=== PATIENT | male | born 1965 | race Caucasian/White ===

== ENCOUNTER 2020-12-31 19:04 | Inpatient (IN) | payer OTHER ==
[~2020-12-31] VITALS: Ht 167.6 cm; Wt 77.1 kg
[2020-12-31] MEDS ORDERED: IV NS 0.9% 1,000 ML BAG IV ONE ×2 (19:30→21:30)
--- NOTE | 2020-12-31 19:32 | NUR ---
TEODORA FROM HOME TO ER BED 6. AAOX3. BREATHING RAPID AND DEEP. BROUGHT IN FOR "NOT FEELING WELL" TODAY. PER EMS REPORT, PT IS KNOWN DIABETIC AND BS WAS HI. UPON RECEIVING PT, ACCUCHECHK READING WAS "HI" X 2. WAS AT THE BEDSIDE FOR EVAL. ORDERS RECEIVED, NOTED AND CARRIED OUT. IV LINE EXTABLISHED ON R WRIST 18G WELL ON THE LFA 18G, BLOOD DRAWN AND SENT TO LAB. PT ON MONITOR
[2020-12-31 20:06] LABS: BASOPHILS % (AUTO) 0.3 % (0.0-2.0); HEMATOCRIT 41 % (39-51); HEMOGLOBIN 13.1 g/dL (13.5-17.5); LYMPHOCYTES # (AUTO) 1.2 /CMM (0.8-4.8); LYMPHOCYTES % (AUTO) 8.2 % (20.0-44.0); MEAN CORPUSCULAR HGB CONC 32 g/dl (31.0-36.0); MEAN CORPUSCULAR VOLUME 90 fL (80-96); MONOCYTES # (AUTO) 0.8 /CMM (0.1-1.30); MONOCYTES % (AUTO) 5.3 % (2.0-12.0); NEUTROPHILS # (AUTO) 13.1 /CMM (1.8-8.9); NEUTROPHILS % (AUTO) 86.2 % (43.0-81.0); PLATELET COUNT (AUTO) 341 /CMM (150-450); RED BLOOD CELL COUNT(AUTO) 4.57 MIL/uL (4.5-6.0); WHITE BLOOD COUNT (AUTO) 15.2 K/uL (4.3-11.0)
--- NOTE | 2020-12-31 20:12 | NUR ---
HETAL OCHOA (STEP SON) [phone]
--- NOTE | 2020-12-31 20:21 | NUR ---
ACCUCHECK STILL READ "HI". AWARE
[2020-12-31 20:26] LABS: BILIRUBIN,DIRECT 0.3 mg/dL (0.0-0.2); BILIRUBIN,TOTAL 0.5 mg/dL (0.2-1.0); CREATININE 1.3 mg/dL (0.6-1.3); POTASSIUM 5.5 mmol/L (3.5-5.1); TOTAL PROTEIN, SERUM 6.7 g/dL (6.4-8.2)
--- NOTE | 2020-12-31 20:27 | NUR ---
NIC-DAUGHTER [phone]
[2020-12-31 20:37] LABS: ABG BASE EXCESS -25.2 mmol/L; ABG OXYGEN SATURATION 49.4 % (92.0-98.5); ABG PCO2 32.8 mmHg (35.0-45.0); ABG PH 6.923 (7.350-7.450); ABG PO2 33.8 mmHg (75.0-100.0); MetHb 0.3 % (0.0-1.5); O2Hb 48.8 % (94.0-97.0); VENT MODE, BG ROOM AIR
--- NOTE | 2020-12-31 20:58 | NUR ---
ICU 252
[2020-12-31] MEDS ORDERED: INSULIN REGULAR, HUMAN 100 UNITS in IV NS 0.9% 100 ML IV PRN (21:00)
[2020-12-31] MEDS ORDERED: INSULIN REGULAR, HUMAN 100 UNIT/ML 10 ML VIAL ONE (21:01)
--- NOTE | 2020-12-31 21:01 | NUR ---
CALLED [facility], PAGED JESSE
[2020-12-31] MEDS: IV PREMIX NS +20MEQ KCL 1,000 L IV PRN ×2 (21:02→23:41)
[2020-12-31] MEDS ORDERED: VANCOMYCIN 1 GM VIAL ONE (21:23)
[2020-12-31] MEDS ORDERED: CEFTRIAXONE 1GM BAG (ER ONLY) 50 ML IV ONE ×2 (21:23→21:30)
[2020-12-31] MEDS ORDERED: VANCOMYCIN 1 GM in IV D5W 250 ML IV ONE (21:30)
[2020-12-31] MEDS ORDERED: INSULIN REGULAR, HUMAN 100 UNIT/ML 10 ML VIAL IV ONE (21:30)
--- NOTE | 2020-12-31 21:47 | NUR ---
REPORT GIVEN TO MICK MILLAN FOR AMADEO
[2020-12-31] MEDS ORDERED: HYDROCODONE/APAP 5/325MG TABLET PO PRN (22:30)
[2020-12-31] MEDS ORDERED: MAGNESIUM HYDROXIDE 30 ML UDC PO PRN (22:30)
[2020-12-31] MEDS ORDERED: ONDANSETRON HCL/PF 4 MG/2 ML VIAL IVP PRN (22:30)
[2020-12-31] MEDS ORDERED: ACETAMINOPHEN 325 MG TABLET PO PRN (22:30)
[2020-12-31] MEDS ORDERED: Z GUARD REMEDY 2 OZ OINT TP PRN (22:30)
[2020-12-31] MEDS ORDERED: IV NS 0.9% 1,000 ML IV PRN (22:30)
[2020-12-31] MEDS ORDERED: MAG HYDROX/AL HYDROX/SIMETH 30 ML UDC PO PRN (22:30)
[2020-12-31] MEDS ORDERED: ZOLPIDEM TARTRATE 5 MG TABLET PO PRN (22:30)
--- NOTE | 2020-12-31 22:38 | NUR ---
accucheck done with reading of "HI"
--- NOTE | 2020-12-31 22:55 | NUR ---
pt trasnported to [facility] with emt and rn at bedside w/ acls protocol. nad noted during transfer.
[2020-12-31 23:00] VITALS: BP 118/65
[2020-12-31] MEDS ORDERED: INSULIN REGULAR, HUMAN 100 UNIT in IV NS 0.9% 99 ML IV PRN (23:00)
--- NOTE | 2020-12-31 23:00 | NUR ---
PROGRAM DIRECTOR GROUP WORK RCD PT FROM ER W/DX DKA W/ORDERS FOR HOURLY ACCU CHECK. PT A/O x4 SLURRED SPEECH PERIORBITAL SWELLING WITH EYES NOTED RED. PT SMELLS OF ALCOHOL. PT ADMITS TO DRINKING 18 BEERS PRIOR TO COMING TO HOSPITAL. NSR ON MONITOR. ON O2 4L NC. PT NPO STATUS. Addendum: 01/01/21 at 0352 by KRISTINE HARO RN PT COLD TO TOUCH WITH TEMP 96
--- NOTE | 2020-12-31 23:25 | NUR ---
CHUMMER PT INCONTINENT OF URINE WITH MOMENTS OF FALLING ASLEEP. OBTAINED ORDER FOR PIZANO CATHETER. PT TOLERATED INSERTION WELL WITH 400 ML YELLOW URINE OUTPUT.
[2020-12-31] MEDS: INSULIN REGULAR, HUMAN 100 UNIT in IV NS 0.9% 99 ML IV PRN (23:42)
[2020-12-31] MEDS: BLOOD SUGAR DIAGNOSTIC 1 EACH STRIP IN SCH (23:43)
[2021-01-01] VITALS (87 sets, daily range): BP systolic 56–136; BP diastolic 21–77
--- NOTE | 2021-01-01 01:11 | NUR ---
TURNER MACHINE OPERATOR BLOOD GLUCOSE HI PER ACCU CHECK PENDING LAB DRAW RESULTS TO TITRATE DRIP.
[2021-01-01] MEDS: BLOOD SUGAR DIAGNOSTIC 1 EACH STRIP IN SCH ×19 (01:12→23:04)
[2021-01-01] MEDS: IV PREMIX NS +20MEQ KCL 1,000 L IV PRN (01:13)
[2021-01-01 01:17] LABS: BILIRUBIN,URINE NEGATIVE (NEGATIVE); COLOR,URINE YELLOW (YELLOW); LEUKOCYTE ESTERASE ,URINE NEGATIVE (NEGATIVE); NITRITE, URINE NEGATIVE (NEGATIVE); PROTEIN,URINE 30 mg/dl (NEGATIVE); UGLUCOSE >=1000 mg/dL (NEGATIVE); UROBILINOGEN,URINE 0.2 EU/dL (0.2)
[2021-01-01 01:25] LABS: CALCIUM, SERUM 7.8 mg/dL (8.5-10.1); CREATININE 1.2 mg/dL (0.6-1.3); POTASSIUM 4.5 mmol/L (3.5-5.1)
[2021-01-01 01:29] LABS: BACTERIA,URINE 3+ /HPF (None Seen); MUCUS,URINE Few /LPF (None Seen); RBC,URINE 0-2 /HPF (0-2); SQUAMOUS EPITHELIAL CELL,UR Few /HPF (None Seen); URINE AMORPHOUS URATE Many /HPF (None Seen)
[2021-01-01] MEDS ORDERED: KCL IV ONE (02:05)
[2021-01-01] MEDS ORDERED: NS IV ONE (02:05)
[2021-01-01] MEDS: LORAZEPAM INJ 2 MG/ML VIAL IV PRN ×3 (02:14→21:34)
--- NOTE | 2021-01-01 02:15 | NUR ---
BIOANALYST PT NOTED TO BE RESTLESS PULLED ATIVAN TO ADMINISTER TO PT. APPLICATION SECURITY CONSULTANT AT BEDSIDE AND NOTED PT BECOME UNRESPOSIVE W/AGONAL BREATHS. DESATURATING ON MONITOR. CODE BLUE INITIATED PER PROTOCOL.
[2021-01-01] MEDS: IV PREMIX NS +20MEQ KCL 1 L IV PRN ×3 (02:33→11:39)
--- NOTE | 2021-01-01 02:35 | NUR ---
RT NOTE PT ORALLY INTUBATED BY VIA ETT 7.5CM SECURED @ 23CM AT THE LIP LINE. EQUAL CHEST RISE AND BILATERAL BREATH SOUNDS NOTED. COLOR CHANGED NOTED FROM CO2 DETECTOR. PT PLACED ON MECHANICAL VENT SETTINGS OF AC16 VT500 FIO2 100% PEEP +5. ALARMS ARE SET AND AUDIBLE. MECHANICAL VENT IS PLUGGED INTO RED OUTLET. PATIENT SUCTIONED FOR THICK, BROWN SECRETIONS. EMERGENCY EQUIPMENT AT PATIENT BEDSIDE. WAITING FOR FURTHER ORDERS. WILL CONTINUE TO MONITOR PATIENT. Addendum: 01/01/21 at 0302 by GEOVANNA LOREDO RT Amended: Links added.
[2021-01-01 02:52] LABS: BASOPHILS % (AUTO) 0.5 % (0.0-2.0); EOSINOPHILS % (AUTO) 0.1 % (0.0-6.0); HEMATOCRIT 36 % (39-51); LYMPHOCYTES % (AUTO) 33.9 % (20.0-44.0); MEAN CORPUSCULAR HGB CONC 33 g/dl (31.0-36.0); MEAN CORPUSCULAR VOLUME 88 fL (80-96); MONOCYTES # (AUTO) 0.3 /CMM (0.1-1.30); NEUTROPHILS # (AUTO) 5.6 /CMM (1.8-8.9); NEUTROPHILS % (AUTO) 62.5 % (43.0-81.0); PLATELET COUNT (AUTO) 263 /CMM (150-450); RED BLOOD CELL COUNT(AUTO) 4.07 MIL/uL (4.5-6.0); WHITE BLOOD COUNT (AUTO) 8.9 K/uL (4.3-11.0)
[2021-01-01 03:02] LABS: ALBUMIN 2.5 g/dL (3.4-5.0); BILIRUBIN,DIRECT 0.2 mg/dL (0.0-0.2); BILIRUBIN,TOTAL 0.5 mg/dL (0.2-1.0); CALCIUM, SERUM 7.8 mg/dL (8.5-10.1); CREATININE 1.6 mg/dL (0.6-1.3); MAGNESIUM 2.6 mg/dL (1.8-2.4); PHOSPHORUS 3.3 mg/dL (2.5-4.9); POTASSIUM 4.3 mmol/L (3.5-5.1); TOTAL PROTEIN, SERUM 5.6 g/dL (6.4-8.2)
[2021-01-01 03:13] LABS: THYROID STIMULATING HORMONE 1.001 uIU/mL (0.358-3.74)
[2021-01-01 04:00] LABS: ABG BASE EXCESS -20.4 mmol/L; ABG OXYGEN SATURATION 89.8 % (92.0-98.5); ABG PCO2 39.3 mmHg (35.0-45.0); ABG PH 7.015 (7.350-7.450); ABG PO2 71.3 mmHg (75.0-100.0); AaDO2 602.4 mmHg; COHb 0.2 % (0.5-1.5); MetHb 0.3 % (0.0-1.5); O2Hb 89.4 % (94.0-97.0); PEEP,BG 5 cm H2O; SITE, ABG Left Brachial; VENT MODE, BG AC16 VT500 100% PEEP+5; VT, ABG 500 mL
[2021-01-01] MEDS ORDERED: NOREPINEPHRINE 8MG/250ML RTU 250 ML IV ONE (04:10)
[2021-01-01] MEDS: NOREPINEPHRINE 8 MG in IV NS 0.9% 242 ML IV PRN ×3 (04:16→15:27)
[2021-01-01] MEDS: PROPOFOL 100 ML IV PRN ×7 (04:30→21:30)
[2021-01-01] MEDS: INSULIN REGULAR, HUMAN 100 UNIT in IV NS 0.9% 99 ML IV PRN (04:51)
[2021-01-01] MEDS ORDERED: INSULIN REGULAR, HUMAN 100 UNIT/ML 3 ML VIAL ONE ×2 (05:19→22:51)
[2021-01-01] MEDS: ACETAMINOPHEN 650 MG/SUPP.RECT RC PRN ×3 (05:30→20:02)
--- NOTE | 2021-01-01 05:30 | NUR ---
PRINTING EQUIPMENT MECHANIC APPRENTICE DESPITE INCREASE IN PROPOFOL TITRATION PT REMAINS AGITATED ATIVAN 1 MG IV GIVEN.
[2021-01-01 06:18] LABS: ABG BASE EXCESS -10.9 mmol/L; ABG PCO2 30.9 mmHg (35.0-45.0); ABG PO2 220.1 mmHg (75.0-100.0); COHb 0.3 % (0.5-1.5); MetHb 0.3 % (0.0-1.5); O2Hb 98.4 % (94.0-97.0); PEEP,BG 5 cm H2O; SITE, ABG Left Brachial; VENT MODE, BG AC24 VT500 100% PEEP+5; VT, ABG 500 mL
--- NOTE | 2021-01-01 07:00 | NUR ---
RN NOTES RECEIVED PT ON BED, INTUBATED, SEDATED ON DIPRIVAN AT 35MCG/KG/MIN, LEVO AT .3 MCG/KG/MIN , INSULIN DRIP AT 6.84 U/HR , IVF AT 250CC/HR RUNNING , ON ST HR IN 100'S, PIZANO DRINING TO GRAVITY, PT IS NPO, R WRIST AND LEFT FA IV SITES CLEAN,DRY AND INTACT, SR UPx3, CALL LIGHT WITHIN EASY REACH BED LOCKED AND IN LOWEST POSITION, CONTINUE TO MONITOR .
[2021-01-01] MEDS ORDERED: ATEN25TA PO (08:04)
[2021-01-01] MEDS ORDERED: GLIP10TA11 PO (08:04)
[2021-01-01] MEDS ORDERED: METF-442 PO (08:04)
[2021-01-01] MEDS ORDERED: LISI40TA13 PO (08:04)
[2021-01-01] MEDS ORDERED: ALOG25TA2 PO (08:04)
[2021-01-01] MEDS ORDERED: TAMS-12 PO (08:04)
[2021-01-01] MEDS: PANTOPRAZOLE 40 MG VIAL IV SCH (08:18)
[2021-01-01 08:19] LABS: CALCIUM, SERUM 7.5 mg/dL (8.5-10.1); CREATININE 1.4 mg/dL (0.6-1.3); POTASSIUM 4.4 mmol/L (3.5-5.1)
[2021-01-01] MEDS ORDERED: IV PREMIX NS +20MEQ KCL 20 MEQ/L BAG IV ONE (08:26)
[2021-01-01] MEDS: VANCOMYCIN 0.75 GM in IV D5W 250 ML IV SCH ×2 (09:17→21:30)
[2021-01-01] MEDS ORDERED: ETOMIDATE 2 MG/ML VIAL IV ONE (10:43)
[2021-01-01] MEDS ORDERED: ROCURONIUM BROMIDE 50 MG/5 ML IV ONE ×2 (10:43→10:44)
--- NOTE | 2021-01-01 11:50 | NUR ---
Advertising Account Manager: supervisor customer services consult requested for ETOH use. Patient was brought to the hospital on 12/31/20 for DKA. Patient is a 55-year-old, male. SW attempted to meet with the patient at his hospital bed on the med-surg unit, however patient is intubated. Per patients MICK De Dios, patient is also sedated and therefore SW is not able to interview the patient at this time. Per patients chart, patient had drank 18 beers prior to coming to the hospital. PLAN: SW will contact patients family to identify a point of contact and confirm the patients current living situation. supervisor customer services will follow up with the patient at a later time.
--- NOTE | 2021-01-01 11:58 | NUR ---
Package Lift Operator note: YUKO spoke to the patients Kirk faustin [phone] to locate a point of contact and confirm the patients current living situation. Kirk confirmed that the patient is currently living with his at [address], [place] [address]; [phone]. YUKO asked Kirk if someone would be able to brain picker the patient from the hospital upon discharge and Kirk stated that he will be able to. Kirk stated he is a main point of contact for the patient. No further SS interventions needed, however SW will remain available to the patient and nursing staff as needed. Addendum: 01/01/21 at 1445 by JORJE HUNTLEY Per patient's ramin, patient's spouse-Shruti Ellington' contact information is [phone].
[2021-01-01 12:01] LABS: CALCIUM, SERUM 7.3 mg/dL (8.5-10.1); CREATININE 1.4 mg/dL (0.6-1.3); POTASSIUM 4.8 mmol/L (3.5-5.1)
--- NOTE | 2021-01-01 12:31 | NUR ---
RN NOTES DR PETERS NOTIFIED REGARDING ANION GAP =14.
--- NOTE | 2021-01-01 14:00 | NUR ---
RN NOTES BG =184, DR PETERS NOTIFED, NEW ORDER RECEIVED . CONTINUE TO MONITOR .
[2021-01-01] MEDS ORDERED: Potassium Chloride 20 MEQ in IV D5/0.45 NACL 1,000 ML IV PRN (14:30)
[2021-01-01 16:25] LABS: CREATININE 1.3 mg/dL (0.6-1.3); POTASSIUM 5.3 mmol/L (3.5-5.1)
--- NOTE | 2021-01-01 17:00 | NUR ---
RN NOTES DR PETERS NOTIFED REGARDING K=5.3, NEW IVF ORDER RECEIVED.
[2021-01-01] MEDS: IV D5/ 0.9% NACL 1,000 ML IV PRN (17:07)
[2021-01-01] MEDS ORDERED: BLOOD SUGAR DIAGNOSTIC 1 EACH STRIP IN SCH ×2 (18:00)
--- NOTE | 2021-01-01 18:33 | NUR ---
RN NOTES PT REMAINS INTUBATED AND SEDATED, TOLERAING VENT SETTING WELL, ON SOB NOTED, ON TELS SR HR IN 90'S, PIZANO DRAINING TO GRAVITY, NPO, LEFT UPPER ARM PICC LINE SITE CLEAN ,DRY AND INTACT, INSULIN GTT RUNNING AT 4.58 U/HR , DIPRIVAN AT 70 MCG/KG/MIN , D5 NS AT 100CC/HR , LEVO AT .1 MCG/KG/MIN RUNNING , SR UP x3, CALL LIGHT WITHIN EASY REACH, BED LOCKED AND IN LOWEST POSITION, WILL ENDORSE TO FIRE AND EXPLOSION INVESTIGATOR NURSE FOR CONTINUITY OF CARE .
--- NOTE | 2021-01-01 19:10 | NUR ---
APPAREL CUTTER RCD PT W/DX DKA PT IS SEDATED ON PROPOFOL 70 MCG/KG/MIN. INTUBTAED 7.5 @ 23 W/VENT SETTINGS AC 24 550 50% +5. NSR ON MONITOR W/BP 88/56 ON LEVOPHED 0.1 MCG/KG/MIN. INSULIN DRIP AY 4.66 UNITS/HR. TEMP 101.1 WILL ADMINISTER TYLENOL WHEN IT IS DUE AND PLACE ON COOLING MEASURES. PIZANO CATH DRAINING YELLOW URINE. SKIN INTACT. PT NPO AT THIS TIME. PHILLIP PICC LINE PATENT AND WITH GOOD BLOOD RETURN.
--- NOTE | 2021-01-01 20:00 | NUR ---
LOGISTICS SERVICE REPRESENTATIVE TEMP 101.1 ADMINISTERED TYLENOL DC AND RENDERED COOLING MEASURES.
[2021-01-01] MEDS: CEFTRIAXONE 1 G in IV D5W 50 ML IV SCH (20:30)
[2021-01-01 21:20] LABS: CREATININE 1.3 mg/dL (0.6-1.3); POTASSIUM 4.2 mmol/L (3.5-5.1)
--- NOTE | 2021-01-01 21:35 | NUR ---
WET ROOM WORKER DESPITE BEING ON DIPRIVAN AT 70 MCG/KG/MIN PT NOTED TO BE RESTLESS AND ATTEMPTING TO REACH FOR ET TUBE ATIVAN 1 MG IVP ADMINISTERED AT THIS TIME. BSWR REMAIN IN PLACE TO PREVENT SELF EXTUBATION.
[2021-01-01] MEDS ORDERED: INSULIN GLARGINE, 100 UNIT/ML CARTRIDGE SQ ONE ×2 (22:00→22:51)
[2021-01-01] MEDS ORDERED: DEXTROSE 50%-WATER 50 ML DISP.SYRIN IV PRN (22:00)
[2021-01-01] MEDS: INSULIN REGULAR, HUMAN 100 UNIT/ML 3 ML VIAL SQ PRN (23:02)
[2021-01-02] VITALS (82 sets, daily range): BP systolic 80–159; BP diastolic 51–93
[2021-01-02] MEDS: PROPOFOL 100 ML IV PRN ×3 (00:30→09:16)
[2021-01-02] MEDS: LORAZEPAM INJ 2 MG/ML VIAL IV PRN ×3 (03:17→14:15)
[2021-01-02 04:45] LABS: CALCIUM, SERUM 7.1 mg/dL (8.5-10.1); CREATININE 1.3 mg/dL (0.6-1.3)
[2021-01-02] MEDS: IV D5/ 0.9% NACL 1,000 ML IV PRN ×2 (04:45→15:13)
[2021-01-02] MEDS: BLOOD SUGAR DIAGNOSTIC 1 EACH STRIP IN SCH ×4 (05:29→21:01)
[2021-01-02] MEDS: INSULIN REGULAR, HUMAN 100 UNIT/ML 3 ML VIAL SQ PRN ×4 (05:31→21:02)
--- NOTE | 2021-01-02 07:10 | NUR ---
RN NOTES RECEIVED PT ON BED, INTUBATED, SEDATED ON DIPRIVAN , LEVO RESTARTED, SBP IN LOW 80'S , ON TELE SR-ST HR IN 100'S, IVF AT 100CC/HR RUNNING , HARINDER DRINING TO GRAVITY, PT IS NPO, R WRIST, LEFT FA AND LEFT UPPER ARM PICC LINE SITES CLEAN, DRY AND INTACT, SR UPx3, CALL LIGHT WITHIN EASY REACH BED LOCKED AND IN LOWEST POSITION, CONTINUE TO MONITOR .
[2021-01-02] MEDS: NOREPINEPHRINE 8 MG in IV NS 0.9% 242 ML IV PRN (07:11)
[2021-01-02] MEDS: PANTOPRAZOLE 40 MG VIAL IV SCH (08:30)
[2021-01-02 08:57] LABS: ABG BASE EXCESS -6.2 mmol/L; ABG OXYGEN SATURATION 98.5 % (92.0-98.5); ABG PH 7.383 (7.350-7.450); ABG PO2 158.4 mmHg (75.0-100.0); AaDO2 163.2 mmHg; COHb 0.3 % (0.5-1.5); MetHb 0.3 % (0.0-1.5); O2Hb 97.9 % (94.0-97.0); PEEP,BG 5 cm H2O; SITE, ABG Right Brachial; VT, ABG 550 mL
[2021-01-02] MEDS: VANCOMYCIN 0.75 GM in IV D5W 250 ML IV SCH ×2 (09:32→21:12)
[2021-01-02 09:39] LABS: BASOPHILS % (AUTO) 0.2 % (0.0-2.0); EOSINOPHILS % (AUTO) 0.3 % (0.0-6.0); HEMATOCRIT 24 % (39-51); HEMOGLOBIN 8.5 g/dL (13.5-17.5); LYMPHOCYTES # (AUTO) 1.7 /CMM (0.8-4.8); LYMPHOCYTES % (AUTO) 10.9 % (20.0-44.0); MEAN CORPUSCULAR HGB CONC 36 g/dl (31.0-36.0); MEAN CORPUSCULAR VOLUME 83 fL (80-96); MONOCYTES # (AUTO) 0.9 /CMM (0.1-1.30); MONOCYTES % (AUTO) 5.8 % (2.0-12.0); NEUTROPHILS # (AUTO) 12.7 /CMM (1.8-8.9); NEUTROPHILS % (AUTO) 82.8 % (43.0-81.0); PLATELET COUNT (AUTO) 130 /CMM (150-450); RED BLOOD CELL COUNT(AUTO) 2.88 MIL/uL (4.5-6.0); WHITE BLOOD COUNT (AUTO) 15.3 K/uL (4.3-11.0)
[2021-01-02 09:41] LABS: ALBUMIN 1.9 g/dL (3.4-5.0); BILIRUBIN,DIRECT 0.2 mg/dL (0.0-0.2); BILIRUBIN,TOTAL 0.4 mg/dL (0.2-1.0); TOTAL PROTEIN, SERUM 4.6 g/dL (6.4-8.2)
[2021-01-02] MEDS ORDERED: DEXTROSE 50%-WATER 50 ML DISP.SYRIN IV PRN (11:30)
[2021-01-02 11:44] LABS: THYROID STIMULATING HORMONE 1.517 uIU/mL (0.358-3.74)
--- NOTE | 2021-01-02 12:00 | NUR ---
RN NOTES DR PETERS NOTIFIED REGARDING HIGH TRIGLYCERIDE, NEW ORDER RECEIVED .
[2021-01-02] MEDS: PRECEDEX 400 MCG/100 ML BOTTLE 100 ML IV SCH ×4 (12:41→23:44)
[2021-01-02] MEDS ORDERED: FENTANYL CITRAT IV 2,500 MCG in IV NS 0.9% 200 ML IV PRN (13:30)
[2021-01-02] MEDS ORDERED: FENTANYL CITRATE IV 1,250 MCG in IV NS 0.9% 225 ML IV PRN (13:30)
--- NOTE | 2021-01-02 18:10 | NUR ---
RN NOTES PT REMANINS INTUBATED AND SEDATED, ON PRECEDEX AT 1.5MCG/KG/MIN, NO DISTRESS NOTED AT THIS TIME, LEVO DRIP AT 0.06 MCG/KG/MIN AND IVF AT 100C/HR RUNNING . LEFT UPPER ARM PICC LINE SITE CLEAN, DRY AND INTACT, SR UP x3, CALL LIGHT WITHIN EASY REACH, PT'S AT THE BEDSIDE VISITING PT, WILL ENDORSE TO HOGSHEAD PRESS OPERATOR NURSE FOR CONTINUITY OF CARE .
--- NOTE | 2021-01-02 19:05 | NUR ---
RECEIVED PT ON BED SEDATED ON ETT/VENT SETTING PER MD FIO2 50% SPO2 100% SEDATED ON PRECEDEX @ 1.5 MCG/KG/HR AND ON LEVOPHED 0.04 MCG/KG/MIN , AND D4 1/2 NS @ 100ML/HR VIA PHILLIP PICC LINE INFUSING WELL HAVE BILATERAL WRIST RESTRAINS A PRECAUTION FOR ACCIDENTAL SELF EXTUBATION, CIRCULATION WILL CHECKED REGULARLY PT HAVE PIZANO CATHETER WITH YELLOW URINE DRAINING VIA GRAVITY, BED ON LOWEST POSITION AND LOCKED SIDE RAILS UP X3 WILL CONT TO MONITOR
[2021-01-02] MEDS: CEFTRIAXONE 1 G in IV D5W 50 ML IV SCH (20:21)
[2021-01-02] MEDS: INSULIN GLARGINE, 100 UNIT/ML CARTRIDGE SQ SCH (21:03)
[2021-01-03] VITALS (41 sets, daily range): BP systolic 84–154; BP diastolic 52–93
[2021-01-03] MEDS: BLOOD SUGAR DIAGNOSTIC 1 EACH STRIP IN SCH ×6 (01:06→21:20)
[2021-01-03] MEDS: INSULIN REGULAR, HUMAN 100 UNIT/ML 3 ML VIAL SQ PRN ×5 (01:10→21:25)
--- NOTE | 2021-01-03 02:40 | NUR ---
PT WAS SELF EXTUBATED . PLACED ON NON REBREATHER 15L. STAT ABG DONE. RESULT GIVEN TO CHARGE NURSE ED. TITRATED 02 TO 10L SIMPLE MASK. PT IS PARTIALLY SEDATED. HELP DESK ADMINISTRATOR ED AND RN NIRANJAN PRESENT IN THE ROOM. SPO2 100%, HR 70. RR 15. WILL CONTINUE TO MONITOR PT T/O SHIFT.
--- NOTE | 2021-01-03 02:40 | NUR ---
I HEARD VENT IS ALARMING I GO TO PT ROOM AND SAW PT KEEP ON MOVING HIS HEAD AND UPON INSPECTION AND ASSESSING PT I SAW THAT HE ACCIDENTALLY SELF EXTUBATED, I IMMEDIATELY DO AMBUBAG THE OTHE PT AND CALL FOR AN ASSISTANCE, CHARGE NURSE AND RT COME TO HELP WE PUT HIM ON 15 NRM WITH SPO2 100% TURN OFF THE PRECEDEX SEDATION AND DO IMMEDIATE ABG WILL CONT TO MONITOR THE PT
[2021-01-03 02:54] LABS: ABG BASE EXCESS -3.6 mmol/L; ABG OXYGEN SATURATION 99.2 % (92.0-98.5); ABG PCO2 30.1 mmHg (35.0-45.0); ABG PH 7.439 (7.350-7.450); ABG PO2 533.9 mmHg (75.0-100.0); COHb 0.5 % (0.5-1.5); MetHb 0.3 % (0.0-1.5); O2Hb 98.4 % (94.0-97.0); SITE, ABG Right Radial; VENT MODE, BG 15 LNRB
[2021-01-03] MEDS: IV D5/ 0.9% NACL 1,000 ML IV PRN ×2 (03:02→13:52)
--- NOTE | 2021-01-03 03:06 | NUR ---
ABG RESULTS RELAYED TO DR. MOLINA WITH NO NEW ORDER, PT IS AWAKE BREATHING EVEN AND UNLABORED, ON O2 10L VIA SIMPLE MASK NOW WILL CONT TO MONITOR THE PT Addendum: 01/03/21 at 0309 by NIRANJAN BERKOWITZ RN CURRENT SPO2 IS 99%
--- NOTE | 2021-01-03 04:04 | NUR ---
PT IS SLEEPING EASY TO WAKE UP BUT STILL CONFUSED NO SIGN OF RESPIRATORY DISTRESS BREATHING EVEN AND UNLABORED STILL ON O2 10L VIA SIMPLE MASK SPO2 100% WILL CONT TO MONITOR
[2021-01-03 05:18] LABS: BASOPHILS % (AUTO) 0.1 % (0.0-2.0); EOSINOPHILS % (AUTO) 0.7 % (0.0-6.0); HEMATOCRIT 23 % (39-51); HEMOGLOBIN 8.1 g/dL (13.5-17.5); LYMPHOCYTES # (AUTO) 1.3 /CMM (0.8-4.8); LYMPHOCYTES % (AUTO) 9.7 % (20.0-44.0); MEAN CORPUSCULAR HGB CONC 36 g/dl (31.0-36.0); MEAN CORPUSCULAR VOLUME 83 fL (80-96); MONOCYTES # (AUTO) 0.6 /CMM (0.1-1.30); MONOCYTES % (AUTO) 4.8 % (2.0-12.0); NEUTROPHILS # (AUTO) 11.1 /CMM (1.8-8.9); NEUTROPHILS % (AUTO) 84.7 % (43.0-81.0); PLATELET COUNT (AUTO) 128 /CMM (150-450); RED BLOOD CELL COUNT(AUTO) 2.73 MIL/uL (4.5-6.0); WHITE BLOOD COUNT (AUTO) 13.1 K/uL (4.3-11.0)
[2021-01-03 05:34] LABS: ALBUMIN 1.9 g/dL (3.4-5.0); BILIRUBIN,TOTAL 0.5 mg/dL (0.2-1.0); CALCIUM, SERUM 7.2 mg/dL (8.5-10.1); CREATININE 0.9 mg/dL (0.6-1.3); MAGNESIUM 1.9 mg/dL (1.8-2.4); PHOSPHORUS 1.5 mg/dL (2.5-4.9); POTASSIUM 2.9 mmol/L (3.5-5.1); TOTAL PROTEIN, SERUM 4.8 g/dL (6.4-8.2)
--- NOTE | 2021-01-03 06:08 | NUR ---
PT ON BED AWAKE COMPLAINING OF THROAT PAIN, NO SIGN AND SYMPTOMS OF RESPIRATORY DISTRESS BREATHING EVEN AND UNLABORED, STILL ON O2 VIA SIMPLE MASK 10L SPO2 97-100% NON PRODUCTIVE COUGH NOTED WILL CONT TO MONITOR
--- NOTE | 2021-01-03 07:10 | NUR ---
PLANT TECHNICIAN NOTES RECEIVED PT ON BED AWAKE STILL CONFUSED A/O X1 ON O2 VIA SIMPLE MASK 10L SPO2 98% BREATHING EVEN AND UNLABORED, TELE MONITOR READS SINUS TACHY 100'S, NOTED WITH PICC LINE ON PHILLIP WITH D5NS RUNNING @ 100ML/HR, NOTED WITH BILATERAL SOFT WRIST RESTRAINT, CIRCULATION CHECKED AND REASSESSED Q15 MIN. SAFETY MEASURES IN PLACE, BED ON LOWEST POSITION AND LOCKED SIDE RAILS UP X 2 CALL LIGHT WITHIN REACH WILL CONTINUE TO MONITOR.
--- NOTE | 2021-01-03 07:22 | NUR ---
PT ON BED AWAKE STILL CONFUSED A/O X1 ON O2 VIA SIMPLE MASK 10L SPO2 98% BREATHING EVEN AND UNLABORED TELE MONITOR READS SINUS TACHY 100'S BED ON LOWEST POSITION AND LOCKED SIDE RAILS UP X 2 CALL LIGHT WITHIN REACH WILL ENDORSED TO AM SHIFT NURSE
[2021-01-03] MEDS: POTASSIUM CL. PREMIX PERIPHER. 50 ML IV SCH ×4 (07:46→11:07)
--- NOTE | 2021-01-03 08:01 | NUR ---
RT SPOKE WITH PATIENT IN [place]. HE IS AWAKE, ALERT, RESPONDING APPROPRIATELY TO ALL QUESTIONS. NO SOB REPORTED. PLACED ON 2L N/C. RN NOTIFIED.
--- NOTE | 2021-01-03 08:30 | NUR ---
WALLPAPERER HELPER NOTES PATIENT PULLED OUT HIS IV ACCESS ON RIGHT WRIST AND PICC LINE, APPLIED PRESSURE DRESSING, MD AWARE. WILL CONTINUE TO MONITOR.
[2021-01-03] MEDS: PANTOPRAZOLE 40 MG VIAL IV SCH (08:34)
[2021-01-03] MEDS: POTASSIUM CHLORIDE 20 MEQ TAB.PRT.SR PO SCH ×3 (08:59→11:09)
[2021-01-03] MEDS: NEUTRA PHOS 1 POWD.PACKET PO SCH ×2 (08:59→16:46)
[2021-01-03] MEDS: VANCOMYCIN 0.75 GM in IV D5W 250 ML IV SCH ×2 (09:02→21:15)
--- NOTE | 2021-01-03 10:00 | NUR ---
LENS COATING TECHNICIAN NOTES FAMILY VISITS THE PATIENT, UPDATES GIVEN, WILL CONTINUE TO MONITOR.
[2021-01-03] MEDS ORDERED: ZIPRASIDONE MESYLATE 20 MG/VIAL VIAL IM ONE (11:00)
[2021-01-03] MEDS: LORAZEPAM INJ 2 MG/ML VIAL IV PRN (17:09)
--- NOTE | 2021-01-03 18:30 | NUR ---
DOZER OPERATOR NOTES PATIENT IN BED, A/O X3 WITH PERIODS OF CONFUSION, AT BEDSIDE, PATIENT WILL GO TO ROOM 308 AT 20:00, WAITING FOR SITTER, IV ACCESS ON LEFT WRIST WITH D5NS RUNNING @ 100ML/HR, INTACT AND PATENT. PIZANO CATHETER INTACT AND PATENT WITH CLEAR YELLOW URINE OUTPUT, SAFETY MEASURES IN PLACE, BED IN LOWEST LOCKED POSITION WITH SIDERAILS UP X2, CALL LIGHT WITHIN REACH, WILL ENDORSE TO POST ACUTE CARE NURSE NURSE FOR AMADEO.
--- NOTE | 2021-01-03 19:25 | NUR ---
RADIO TIME BUYER REPORT GIVEN AND PT TRANSFERRED TO 308-.
--- NOTE | 2021-01-03 19:30 | NUR ---
pack out operator opening notes Received Pt from ICU nurse MICK Sapp. PT arrived at the unit with a gurney and ACLS protocol. Pt is alert and orientedX1-2 with episode of confusion. Respiration is normal in 2 L NC. No SOB. No S/S of distress noted. Tele monitor showed SR hr at 97. VS is stable. Afebrile. IV site at L wrist#18 is clean, intact and infusing well D5NS@ 100 ml/hr. Bilateral soft wrist restraints are intact, skin is warm to touch and circulation is check Q 2 hr. Teran cath is intact and draining yellow urine. Safety precautions is maintained. Bed at low position, brakes locked, side rails upX2, hob elevated and call light is within reach. Will continue to monitor. Addendum: 01/04/21 at 0437 by ZOILA CABRERA RN Sitter also at the bedside.
[2021-01-03] MEDS: CEFTRIAXONE 1 G in IV D5W 50 ML IV SCH (20:20)
[2021-01-03] MEDS: INSULIN GLARGINE, 100 UNIT/ML CARTRIDGE SQ SCH (21:23)
[2021-01-04] VITALS: BP 143/83
[2021-01-04] MEDS: BLOOD SUGAR DIAGNOSTIC 1 EACH STRIP IN SCH ×6 (00:24→21:21)
[2021-01-04] MEDS: INSULIN REGULAR, HUMAN 100 UNIT/ML 3 ML VIAL SQ PRN ×4 (00:25→21:26)
[2021-01-04] MEDS: IV D5/ 0.9% NACL 1,000 ML IV PRN (00:27)
[2021-01-04 04:00] VITALS: BP 142/73
[2021-01-04 06:11] LABS: BASOPHILS % (AUTO) 0.2 % (0.0-2.0); EOSINOPHILS % (AUTO) 0.8 % (0.0-6.0); HEMATOCRIT 24 % (39-51); HEMOGLOBIN 8.6 g/dL (13.5-17.5); LYMPHOCYTES # (AUTO) 1.5 /CMM (0.8-4.8); LYMPHOCYTES % (AUTO) 14.6 % (20.0-44.0); MEAN CORPUSCULAR HGB CONC 36 g/dl (31.0-36.0); MEAN CORPUSCULAR VOLUME 83 fL (80-96); MONOCYTES # (AUTO) 1.2 /CMM (0.1-1.30); MONOCYTES % (AUTO) 12.2 % (2.0-12.0); NEUTROPHILS # (AUTO) 7.4 /CMM (1.8-8.9); NEUTROPHILS % (AUTO) 72.2 % (43.0-81.0); PLATELET COUNT (AUTO) 161 /CMM (150-450); RED BLOOD CELL COUNT(AUTO) 2.87 MIL/uL (4.5-6.0); WHITE BLOOD COUNT (AUTO) 10.2 K/uL (4.3-11.0)
--- NOTE | 2021-01-04 06:50 | NUR ---
fire protection fabricator closing notes Pt is resting in bed comfortably. Pt is alert and orientedX1-2 with episode of confusion. Respiration is normal in 2 L NC. No SOB. No S/S of distress noted. VS is stable. Afebrile. Tele monitor showed SR hr at 80. VS is stable. Afebrile. IV site at L wrist#18 is clean, intact and infusing well D5NS@ 100 ml/hr. Bilateral soft wrist restraints are intact, skin is warm to touch and circulation is check Q 2 hr. Sitter at the bedside. Teran cath is intact and draining yellow urine 1450ml. Kept Pt clean, dry and comfortable. Safety precautions is maintained. Bed at low position, brakes locked, side rails upX2, hob elevated and call light is within reach. Will endorse to morning nurse for AMADEO.
--- NOTE | 2021-01-04 07:39 | NUR ---
GAUGE MAKER APPRENTICE CLOSING NOTE PATIENT A/O X1; WITH EPISODES OF CONFUSION. ON O2 2LPM VIA N/C; TOLERATING WELL WITH NO SOB. TELE MONITOR READS SR AND HR AT 90'S. IV TO L WRIST 18G; D5NS @ 100ML/HR. BILATERAL WRIST SOFT RESTRAINTS ON; GOOD BLOOD CIRCULATION NOTED. PIZANO CATH DRAINING CLEAR YELLOW URINE; PATENT AND INTACT. SAFETY MEASURES IN PLACE: BED IN LOWEST LOCKED POSITION, SIDE RAILS UPX2, CALL LIGHT WITHIN REACH, BED ALARMS ON, HOB ELEVATED. ENDORSE AMADEO TO ONCOMING MORNING RN.
[2021-01-04 07:59] LABS: CALCIUM, SERUM 7.5 mg/dL (8.5-10.1); CREATININE 0.7 mg/dL (0.6-1.3); PHOSPHORUS 2.4 mg/dL (2.5-4.9)
[2021-01-04] MEDS: PANTOPRAZOLE 40 MG VIAL IV SCH (08:15)
[2021-01-04 08:27] LABS: POTASSIUM 2.5 mmol/L (3.5-5.1)
[2021-01-04] MEDS: VANCOMYCIN 0.75 GM in IV D5W 250 ML IV SCH ×2 (09:40→22:04)
[2021-01-04] MEDS ORDERED: NEUTRA PHOS 1 POWD.PACKET PO ONE (11:30)
[2021-01-04] MEDS ORDERED: Sodium Phosphate 15 MMOL in IV NS 0.9% 245 ML IV SCH (12:00)
--- NOTE | 2021-01-04 12:30 | NUR ---
Social Service Consult: patient financial services coordinator consult requested for alcohol use. Patient is a 55-year-old, male. SW met with the patient at his hospital bed in the med-surg unit. Patient is alert and oriented x4. Patient is calm and watching television. Per patients chart, patient was brought in by ambulance from home on 12/31/20 for diabetic ketoacidosis. Patient stated he is currently living with his spouse, Shruti [phone] [place] [address] [place] [address]; [phone]. SW assessed if patient has a source of income and patient stated he is unemployed and not receiving any income. Patient stated that he has support from his family when needed. SW assessed patients history of substance use and patient stated he has a history of alcohol abuse. Patient reported that he stopped drinking for a year and recently started drinking for the entire week prior to his admission at the hospital. Patient reported drinking two, six-pack beer cases a day and reported that he has been experiencing stress related to his finances. Patient denies any history of drug use. Patient denies any history of mental illness or thoughts of suicide or homicide. SW discussed discharge plans with the patient. Patient stated that he plans to return to [place] living arrangement [place] [address] [place] [address]; [phone]. Upon discharge, patient stated that his stepson, Kirk Ellington [phone] will be able to pick him up from the hospital. SW offered the patient substance abuse resources for alcohol. Patient accepted the resources and thanked this SW. Patient stated that he is aware of the resources, such as Alcoholics Anonymous and plans to utilize them upon discharge. Patient stated that he is motivated to stop drinking. PLAN: Patient stated he will be returning to his prior living arrangement. No further SS interventions at this time, however SW will remain available as needed. Substance use resources provided included: [facility] Substance Abuse Self-Helpline ([facility]) ; [facility] [address] [facility] [address] ; [facility] [id number] [place] [address] ; [facility] [address] [facility] [address] ; [facility] [address] [facility] [address] ; [facility] [address] [facility] [address] ; [facility]; [facility] [place]; [facility]; Alcoholics Anonymous -[facility]
[2021-01-04] MEDS ORDERED: POTASSIUM CHLORIDE 10 MEQ/50 ML PREMIXED IVPB FOR PERIPHERAL LINE IV ONE (13:00)
--- NOTE | 2021-01-04 19:05 | NUR ---
RN opening notes Received Pt from morning nurse. Pt is laying in bed comfortably with a sitter at the bedside. Pt is alert and orientedX2 with episode of confusion. Respiration is normal in room air. No SOB. No S/S of distress noted. IV site at L wrist # 18 is clean, intact and infusing well potassium at 50 ml/hr. Teran cath is intact and draining yellow urine. Safety precautions is maintained. Bed at low position, brakes locked, hob elevated and call light is within reach. Will continue to monitor.
[2021-01-04 20:00] VITALS: BP 148/70
--- NOTE | 2021-01-04 20:05 | NUR ---
RN ms notes Pt is complaining of nauseated and requesting meds. Administered zofran 4mg/iv push/prn as ordered for nausea. Safety precautions is maintained. Will continue to monitor.
[2021-01-04] MEDS: CEFTRIAXONE 1 G in IV D5W 50 ML IV SCH (20:53)
[2021-01-04] MEDS: INSULIN GLARGINE, 100 UNIT/ML CARTRIDGE SQ SCH (21:24)
[2021-01-05] MEDS: BLOOD SUGAR DIAGNOSTIC 1 EACH STRIP IN SCH ×5 (00:31→21:45)
[2021-01-05] MEDS: INSULIN REGULAR, HUMAN 100 UNIT/ML 3 ML VIAL SQ PRN ×4 (00:33→21:49)
[2021-01-05 06:20] LABS: BASOPHILS % (AUTO) 0.2 % (0.0-2.0); EOSINOPHILS % (AUTO) 1.6 % (0.0-6.0); HEMATOCRIT 25 % (39-51); HEMOGLOBIN 8.8 g/dL (13.5-17.5); LYMPHOCYTES # (AUTO) 1.3 /CMM (0.8-4.8); LYMPHOCYTES % (AUTO) 18.8 % (20.0-44.0); MEAN CORPUSCULAR HGB CONC 36 g/dl (31.0-36.0); MEAN CORPUSCULAR VOLUME 84 fL (80-96); MONOCYTES # (AUTO) 1.5 /CMM (0.1-1.30); MONOCYTES % (AUTO) 21.5 % (2.0-12.0); NEUTROPHILS # (AUTO) 4.1 /CMM (1.8-8.9); NEUTROPHILS % (AUTO) 57.9 % (43.0-81.0); PLATELET COUNT (AUTO) 214 /CMM (150-450); RED BLOOD CELL COUNT(AUTO) 2.92 MIL/uL (4.5-6.0); WHITE BLOOD COUNT (AUTO) 7.1 K/uL (4.3-11.0)
[2021-01-05 06:41] LABS: CALCIUM, SERUM 7.7 mg/dL (8.5-10.1); CREATININE 0.8 mg/dL (0.6-1.3); MAGNESIUM 1.7 mg/dL (1.8-2.4); PHOSPHORUS 2.9 mg/dL (2.5-4.9)
--- NOTE | 2021-01-05 06:45 | NUR ---
racing board marker closing notes Pt is resting in bed comfortably. Pt is alert and orientedX3. Respiration is normal in room air. No SOB. No S/S of distress noted. VS is stable. Afebrile. IV site at L wrist#18 is clean, intact and infusing well D5NS@ 100 ml/hr. Sitter at the bedside. Teran cath is intact and draining yellow urine 1200ml. Kept Pt clean, dry and comfortable. Safety precautions is maintained. Bed at low position, brakes locked, side rails upX2, hob elevated and call light is within reach. Will endorse to morning nurse for AMADEO.
[2021-01-05 07:41] LABS: POTASSIUM 2.5 mmol/L (3.5-5.1)
[2021-01-05 08:00] VITALS: BP 149/88
[2021-01-05] MEDS: PANTOPRAZOLE 40 MG VIAL IV SCH (08:27)
[2021-01-05] MEDS: VANCOMYCIN 0.75 GM in IV D5W 250 ML IV SCH (09:17)
[2021-01-05] MEDS: MGSO4/D5W 100 ML IV SCH ×3 (12:05→20:44)
[2021-01-05] MEDS: POTASSIUM CL. PREMIX PERIPHER. 50 ML IV SCH ×9 (12:05→23:54)
[2021-01-05 13:26] LABS: EOSINOPHILS % (MANUAL) 5 % (0-4); LYMPHOCYTES % (MANUAL) 20 % (16-48); MONOCYTES % (MANUAL) 19 % (0-11.0); NEUTROPHILS % (MANUAL) 56 (42-76)
[2021-01-05 16:00] VITALS: BP 145/84
[2021-01-05] MEDS: POTASSIUM CHLORIDE 20 MEQ TAB.PRT.SR PO SCH ×2 (16:55→17:00)
[2021-01-05] MEDS ORDERED: Magnesium 1GM/D5W 100ML PREMIX 100 ML IV SCH (19:00)
--- NOTE | 2021-01-05 19:30 | NUR ---
MS/TELE/RN RECEIVED PATIENT LYING IN BED AWAKE, ALERT, ORIENTED, COMFORTABLE, NO C/O PAIN, NO DISTRESS NOTED, CALL LIGHT IN REACH. FALL PRECAUTION PER PROTOCOL, WILL MONITOR.
[2021-01-05 20:00] VITALS: BP 148/82
[2021-01-05] MEDS ORDERED: POTASSIUM CL. PREMIX PERIPHER. 50 ML IV SCH (20:00)
--- NOTE | 2021-01-05 21:34 | NUR ---
MS/TELE/RN SENT A MESSAGE VIA SECURED MESSAGING TO DR. PARMINDER PETERS TO CLARIFY THE POTASSIUM IV AND MAGNESIUM IV ORDERS. MAGNESIUM 1 GM IV SCANNED AT 2043 WAS STOPPED INFUSION PENDING CLARIFICATION FROM DR. PARMINDER PETERS.
[2021-01-05] MEDS: CEFTRIAXONE 1 G in IV D5W 50 ML IV SCH (21:44)
[2021-01-05] MEDS: VANCOMYCIN 1 GM in IV D5W 250 ML IV SCH (22:24)
[2021-01-05] MEDS: INSULIN GLARGINE, 100 UNIT/ML CARTRIDGE SQ SCH (22:24)
--- NOTE | 2021-01-05 23:30 | NUR ---
MS/TELE/RN CLARIFIED THE POTASSIUM IV ORDER WITH SHIVAM LOYD NP. PER SHIVAM, ADMINISTER THE POTASSIUM 60 MEQ IV THAT WAS REMAINING FROM THE PREVIOUS ORDERS. CLARIFIED ALSO THE MAGNESIUM IV ORDER, PER SHIVAM, THE MAGNESIUM 2 GRAMS THAT WAS ALREADY ADMINISTERED IS ENOUGH, NO NEED TO ADMINISTER THE REMAINING MAGNESIUM.
--- NOTE | 2021-01-05 23:51 | NUR ---
MS/TELE/RN THE THIRD DOSE OF MAGNESIUM SCANNED AT 2043 WAS NOT ADMINISTERED.
[2021-01-06] MEDS ORDERED: POTASSIUM CHLORIDE 10 MEQ/50 ML PREMIXED IVPB FOR PERIPHERAL LINE IV SCH
[2021-01-06] MEDS: POTASSIUM CL. PREMIX PERIPHER. 50 ML IV SCH ×12 (00:41→18:39)
[2021-01-06] MEDS: INSULIN REGULAR, HUMAN 100 UNIT/ML 3 ML VIAL SQ PRN ×5 (01:37→22:29)
[2021-01-06] MEDS: BLOOD SUGAR DIAGNOSTIC 1 EACH STRIP IN SCH ×6 (01:40→22:18)
--- NOTE | 2021-01-06 01:46 | NUR ---
MS/TELE/RN PATIENT IS SLEEPING AT THIS TIME, APPEAR COMFORTABLE, NO SIGNS OF DISTRESS NOTED, CALL LIGHT IN REACH, WILL CONTINUE TO MONITOR.
--- NOTE | 2021-01-06 06:32 | NUR ---
MS/TELE/RN PATIENT IS AWAKE, ALERT, ORIENTED, COMFORTABLE, NO C/O PAIN, NO DISTRESS NOTED, ALL NEEDS ATTENDED AT THIS TIME, WILL CONTINUE TO MONITOR.
--- NOTE | 2021-01-06 07:39 | NUR ---
MS/RN NOTES RECEIVED PATIENT ON BED AWAKE ALERT AND ORIENTED X4. PATIENT IS ON ROOM AIR SATURATING WELL. PATIENT IN NO APPARENT RESPIRATORY DISTRESS NOTED. NO COMPLAINED OF PAIN NOTED AT THIS TIME. WILL CONTINUE TO MONITOR.
[2021-01-06 08:22] LABS: BASOPHILS % (AUTO) 0.1 % (0.0-2.0); EOSINOPHILS % (AUTO) 0.6 % (0.0-6.0); HEMATOCRIT 25 % (39-51); HEMOGLOBIN 8.7 g/dL (13.5-17.5); LYMPHOCYTES # (AUTO) 1.3 /CMM (0.8-4.8); LYMPHOCYTES % (AUTO) 16.5 % (20.0-44.0); MEAN CORPUSCULAR HGB CONC 35 g/dl (31.0-36.0); MEAN CORPUSCULAR VOLUME 85 fL (80-96); MONOCYTES # (AUTO) 1.6 /CMM (0.1-1.30); MONOCYTES % (AUTO) 20.1 % (2.0-12.0); NEUTROPHILS % (AUTO) 62.7 % (43.0-81.0); PLATELET COUNT (AUTO) 283 /CMM (150-450); RED BLOOD CELL COUNT(AUTO) 2.95 MIL/uL (4.5-6.0)
[2021-01-06 08:43] LABS: CALCIUM, SERUM 7.6 mg/dL (8.5-10.1); CREATININE 0.8 mg/dL (0.6-1.3); MAGNESIUM 1.9 mg/dL (1.8-2.4); PHOSPHORUS 2.7 mg/dL (2.5-4.9)
--- NOTE | 2021-01-06 09:17 | NUR ---
MS/RN NOTES PARMINDER PETERS DNP WAS AWARE FOR HOME MEDICATIONS RECONCILIATIONS.
[2021-01-06] MEDS: PANTOPRAZOLE 40 MG VIAL IV SCH (09:19)
[2021-01-06] MEDS: VANCOMYCIN 1 GM in IV D5W 250 ML IV SCH (09:25)
[2021-01-06] MEDS: IV D5/ 0.9% NACL 1,000 ML IV PRN ×2 (09:51→18:56)
[2021-01-06 10:21] LABS: BAND % (MANUAL) 2 % (0.0-5.0); LYMPHOCYTES % (MANUAL) 17 % (16-48); MONOCYTES % (MANUAL) 18 % (0-11.0); NEUTROPHILS % (MANUAL) 63 (42-76)
[2021-01-06 18:00] VITALS: BP 147/80
--- NOTE | 2021-01-06 18:43 | NUR ---
MS/RN CLOSING NOTES PATIENT IS ON BED ALERT AND ORIENTED X 4. PATIENT IN ROOM AIR SATURATION 97%. PATIENT IN NO APPARENT RESPIRATORY DISTRESS NOTED. NO COMPLAINED OF PAIN NOTED AT THIS TIME. IV ACCESS AT RIGHT AC #20G G PATENT AND INTACT. SEEN AND EXAMINED BY MD WITH ORDERS MADE AND CARRIED OUT. ALL DUE MEDICATIONS WAS GIVEN. SAFETY PRECAUTIONS WAS IN PLACED, SIDE RAILS UP X2. CALL LIGHT WITHIN REACH. WILL ENDORSED TO GAS LEAK TESTER FOR AMADEO. Addendum: 01/06/21 at 1847 by STEPHANE BLACKMON RN ERROR
--- NOTE | 2021-01-06 18:43 | NUR ---
MS/RN CLOSING NOTES PATIENT IS ON BED ALERT AND ORIENTED X 4. PATIENT IN ROOM AIR SATURATION 97%. PATIENT IN NO APPARENT RESPIRATORY DISTRESS NOTED. NO COMPLAINED OF PAIN NOTED AT THIS TIME. IV ACCESS AT RIGHT UPPER MIDLINE #18 G PATENT AND INTACT. SEEN AND EXAMINED BY MD WITH ORDERS MADE AND CARRIED OUT. ALL DUE MEDICATIONS WAS GIVEN. SAFETY PRECAUTIONS WAS IN PLACED, SIDE RAILS UP X2. CALL LIGHT WITHIN REACH. WILL ENDORSED TO LEAN COACH FOR AMADEO. Addendum: 01/06/21 at 1843 by STEPHANE BLACKMON RN ERROR
--- NOTE | 2021-01-06 18:48 | NUR ---
MS/RN CLOSING NOTES PATIENT IS ON BED ALERT AND ORIENTED X 4. PATIENT IN ROOM AIR SATURATION 97%. PATIENT IN NO APPARENT RESPIRATORY DISTRESS NOTED. NO COMPLAINED OF PAIN NOTED AT THIS TIME. IV ACCESS AT RIGHT WRIST #20G WITH IV FLUID OF D5NS 1L AT 100 ML/HR ON AND INFUSING WELL. SEEN AND EXAMINED BY MD WITH ORDERS MADE AND CARRIED OUT. ALL DUE MEDICATIONS WAS GIVEN. SAFETY PRECAUTIONS WAS IN PLACED, SIDE RAILS UP X2. CALL LIGHT WITHIN REACH. WILL ENDORSED TO QUALITY COORDINATOR FOR AMADEO.
--- NOTE | 2021-01-06 19:52 | NUR ---
MS/TELE/RN RECEIVED PATIENT LYING IN BED AWAKE, ALERT, ORIENTED, COMFORTABLE, NO C/O PAIN, NO DISTRESS NOTED, CALL LIGHT IN REACH, NEEDS ATTENDED, WILL MONITOR.
[2021-01-06 20:00] VITALS: BP 136/79
--- NOTE | 2021-01-06 20:42 | NUR ---
MS/TELE/RN C/O COUGH, SHIVAM LOYD RN, NOTIFIED, ORDER OF ROBITUSSIN 10 ML PO Q6 HOURS PRN WAS RECEIVED. CARRIED OUT.
[2021-01-06] MEDS ORDERED: GUAIFENESIN/D-METHORPHAN HB 5 ML UDC PO PRN (21:00)
[2021-01-06] MEDS: CEFTRIAXONE 1 G in IV D5W 50 ML IV SCH (21:16)
[2021-01-06] MEDS: INSULIN GLARGINE, 100 UNIT/ML CARTRIDGE SQ SCH (22:34)
--- NOTE | 2021-01-07 00:36 | NUR ---
MS/TELE/RN PATIENT IS SLEEPING AT THIS TIME, APPEAR COMFORTABLE, NO SIGNS OF DISTRESS NOTED, CALL LIGHT IN REACH, WILL CONTINUE TO MONITOR.
[2021-01-07] MEDS: BLOOD SUGAR DIAGNOSTIC 1 EACH STRIP IN SCH ×5 (01:13→17:15)
[2021-01-07] MEDS: INSULIN REGULAR, HUMAN 100 UNIT/ML 3 ML VIAL SQ PRN ×2 (01:14→13:42)
--- NOTE | 2021-01-07 06:08 | NUR ---
MS/TELE/RN PATIENT IS AWAKE, COMFORTABLE, NO DISTRESS NOTED, CALL LIGHT IN REACH, ALL NEEDS ATTENDED AT THIS TIME, WILL CONTINUE TO MONITOR.
[2021-01-07] MEDS: IV D5/ 0.9% NACL 1,000 ML IV PRN (06:46)
[2021-01-07 07:07] LABS: CALCIUM, SERUM 7.8 mg/dL (8.5-10.1); CREATININE 0.8 mg/dL (0.6-1.3); POTASSIUM 2.9 mmol/L (3.5-5.1)
--- NOTE | 2021-01-07 07:40 | NUR ---
MS/RN OPENING NOTES RECEIVED PATIENT IN BED, ALERT AND ORIENTED X4. NO SHORTNESS OF BREATH NOTED, ON ROOM AIR AND SATURATING WELL. NO PAIN REPORTED AT THIS TIME. PIZANO CATHETER IN PLACE DRAINING WELL TO A CLEAR YELLOW URINE. LOW BED AND CALL LIGHT WITHIN REACH. WILL CONTINUE TO MONITOR.
[2021-01-07 08:00] VITALS: BP 147/77
[2021-01-07] MEDS: PANTOPRAZOLE 40 MG VIAL IV SCH (09:06)
[2021-01-07] MEDS: POTASSIUM CL. PREMIX PERIPHER. 50 ML IV SCH ×6 (11:04→18:10)
--- NOTE | 2021-01-07 11:20 | NUR ---
MS/RN NOTES PARMINDER PETERS DNP IS AWARE FOR MEDICATION RECONCILIATION.
[2021-01-07] MEDS ORDERED: SYRI1DIS86 MC (13:14)
[2021-01-07] MEDS ORDERED: INSU100I30 SQ (13:14)
[2021-01-07] MEDS ORDERED: INSU100C10 SQ (13:14)
--- NOTE | 2021-01-07 19:16 | NUR ---
MS/RN OPENING NOTES PATIENT IS IN BED, ALERT AND ORIENTED X4. NO SHORTNESS OF BREATH NOTED, ON ROOM AIR AND SATURATING WELL. NO PAIN REPORTED AT THIS TIME. PIZANO CATHETER REMOVED THIS AFTERNOON. ON LOW BED AND CALL LIGHT WITHIN REACH. MEDICALLY STABLE AND ORDERED TO BE DISCHARGED TO HOME. DISCHARGED INSTRUCTIONS PROVIDED AND PATIENT ABLE TO VERBALIZED UNDERSTANDING. WILL ENDORSED TO THE STREET LIGHT REPAIRER HELPER FOR DISCHARGED.
--- NOTE | 2021-01-07 19:45 | NUR ---
patient alert and orientated at the bedside d/c paket with patient K+ infusion finished d/cd and hep lock removed no bleeding placed in w/c taken to private car
[2021-01-08] MEDS ORDERED: PANTOPRAZOLE 40 MG TABLET.DR PO SCH (09:00)
== END 2021-01-07 19:00 | disposition home or self-care (01) | DRG 720 ==
LOC: ER 19:04 → EDBD 19:04 → ICU 22:20 → MED 01-03 19:26 → TELE 01-03 20:51 → MED 01-04 14:03 → UNDODISIN 01-07 16:35
PROVIDERS: ADMIT Student in an Organized Health Care Education/Training Program; ATTEND Nurse Practitioner Acute Care
PROC: 5A1945Z Respiratory Ventilation, 24-96 Consecutive Hours (ICD-10-PCS; principal; 2020-12-31)
PROC: 0BH18EZ Insertion of Endotracheal Airway into Trachea, Via Natural or Artificial Opening Endoscopic (ICD-10-PCS; 2020-12-31)
PROC: 02HV33Z Insertion of Infusion Device into Superior Vena Cava, Percutaneous Approach (ICD-10-PCS; 2021-01-01)
PROC: B548ZZA Ultrasonography of Superior Vena Cava, Guidance (ICD-10-PCS; 2021-01-01)
DX: A41.9 Sepsis, unspecified organism (principal); I21.A1 Myocardial infarction type 2; J96.01 Acute respiratory failure with hypoxia; E11.10 Type 2 diabetes mellitus with ketoacidosis without coma; R57.1 Hypovolemic shock; N17.0 Acute kidney failure with tubular necrosis; J18.9 Pneumonia, unspecified organism; E44.0 Moderate protein-calorie malnutrition; D69.59 Other secondary thrombocytopenia; E87.2 Acidosis; I10 Essential (primary) hypertension; E86.0 Dehydration; D64.9 Anemia, unspecified; E86.1 Hypovolemia; E87.6 Hypokalemia; N39.0 Urinary tract infection, site not specified; Z20.822 Contact with and (suspected) exposure to COVID-19; E78.1 Pure hyperglyceridemia; F10.129 Alcohol abuse with intoxication, unspecified; R74.01 Elevation of levels of liver transaminase levels; E88.09 Other disorders of plasma-protein metabolism, not elsewhere classified; Y90.8 Blood alcohol level of 240 mg/100 ml or more; J98.11 Atelectasis; I35.1 Nonrheumatic aortic (valve) insufficiency; N13.9 Obstructive and reflux uropathy, unspecified; E72.89 Other specified disorders of amino-acid metabolism; Z68.27 Body mass index [BMI] 27.0-27.9, adult; G40.909 Epilepsy, unspecified, not intractable, without status epilepticus; Z79.4 Long term (current) use of insulin
CPT/HCPCS: 31720; 36415; 36569; 36600; 71045-TC; 80048-TC; 80053-TC; 80061-TC; 80076-TC; 80202-TC; 81001; 82728-TC; 82803-TC; 82947-TC; 82962-TC; 83540-TC; 83605-TC; 83735-TC; 83880; 84100-TC; 84132-TC; 84439-TC; 84443-TC; 84478-TC; 84484-TC; 85025-TC; 85610-TC; 85730-TC; 87040-TC; 87081-TC; 87086-TC; 92526; 92611-TC; 93307-TC; 94003-TC; 94760-TC; 94799-TC; 97112-TC; 97116-TC; 97530-TC; A9563; C1751; C9113; G0378; G0480; J0696; J1815; J2060; J2405; J3010; J3370; J3475; J3480; J3486; J3490; J7030; J7042; J7050; J7060